=== PATIENT | male | born 1990 | race Caucasian/White ===

== ENCOUNTER 2018-11-17 15:21 | Emergency (ER) | payer BC ==
[~2018-11-17] VITALS: Ht 177.8 cm; Wt 93.4 kg
[2018-11-17 15:26] VITALS: Ht 177.8 cm; Wt 93.4 kg
[2018-11-17 16:50] VITALS: BP 136/83
== END 2018-11-17 16:50 | disposition home or self-care (01) ==
LOC: ED 15:21
DX: G51.0 Bell's palsy (principal); H66.92 Otitis media, unspecified, left ear